=== PATIENT | female | born 1965 | race Two or more races ===

== ENCOUNTER → 2019-07-06 | Day surgery (SDC) | payer OTHER ==
--- NOTE | 2019-07-08 12:28 | PATH ---
Cytology Non-Gynecological Report Patient Name: ANGELA PARMAR [facility]. Rec. #: [id number] /Age/Gender: 1965 (Age: 54) / F Account: [id number] Location: RADIOLOGY INTER Taken: 07/06/2019 Received: 07/06/2019 Reported: 07/08/2019 Physicians: Thuan Finney M.D. Specimen(s) Received THYROID FNA Clinical History Left lobe thyroid, 6.5 x 3.01 x 4.73 cm Final Diagnosis THYROID, LEFT LOBE, FINE NEEDLE ASPIRATION: SATISFACTORY FOR EVALUATION. B[place] CLASS II: BENIGN. CYTOLOGIC FINDINGS ARE CONSISTENT WITH A BENIGN FOLLICULAR NODULE. SMALL FOLLICULAR CELLS, COLLOID, AND RARE LYMPHOID TANGLES PRESENT. Electronically Signed Julia Gill M.D. Gross Description Received are eight direct smears, four of which are air-dried and Diff-Quik stained, and four of which are alcohol fixed and Pap stained. Also received is 20 ml of bloody formalin from which one cellblock is prepared.
== END | disposition home or self-care (01) ==
LOC: JRADIR 09:24
PROVIDERS: ATTEND Internal Medicine
PROC: 0G9G3ZX Drainage of Left Thyroid Gland Lobe, Percutaneous Approach, Diagnostic (ICD-10-PCS; principal; 2019-07-06)
DX: D34 Benign neoplasm of thyroid gland (principal)
CPT/HCPCS: 76942; 88173; 88305-TC

== ENCOUNTER 2021-04-04 04:43 | Day surgery (SDC) | payer OTHER ==
[2021-04-03 14:39] VITALS: BMI 31.3
[2021-04-04 13:56] VITALS: BP 137/73; PULSE 79; TEMP 97.8
== END 2021-04-04 13:31 | disposition home or self-care (01) ==
LOC: JASU-ENDO 04:43
PROVIDERS: ATTEND Internal Medicine Gastroenterology
PROC: 0DB28ZX Excision of Middle Esophagus, Via Natural or Artificial Opening Endoscopic, Diagnostic (ICD-10-PCS; 2021-04-04)
PROC: 0D738ZZ Dilation of Lower Esophagus, Via Natural or Artificial Opening Endoscopic (ICD-10-PCS; 2021-04-04)
PROC: 0DB38ZX Excision of Lower Esophagus, Via Natural or Artificial Opening Endoscopic, Diagnostic (ICD-10-PCS; principal; 2021-04-04 12:00)
DX: K22.2 Esophageal obstruction (principal); R13.10 Dysphagia, unspecified; R93.3 Abnormal findings on diagnostic imaging of other parts of digestive tract

== ENCOUNTER 2022-02-23 19:54 | Emergency (ER) | payer OTHER ==
[2022-02-23 20:06] VITALS: TEMP 97.6; BMI 29.2
[2022-02-23 21:11] LABS: BASO % 0.7 % (0-2.0); EOS % 3.3 % (0-4.5); HEMATOCRIT 38.9 % (32.4-45.2); HEMOGLOBIN 13.5 GM/dL (10.7-15.3); LYMPH % 42.3 % (8-40); MCHC 34.7 g/dl (32.0-36.0); MEAN CELL VOLUME 77.8 fl (80-96); MEAN PLT VOLUME 9.2 fl (7.5-11.1); MONO % 6.5 % (3.8-10.2); NEUT % 47.2 % (42.8-82.8); PLATELET COUNT 219 10^3/uL (134-434); RDW 13.6 % (11.6-15.6); WHITE BLOOD COUNT 7.5 K/mm3 (4.0-10.0)
[2022-02-23 21:25] LABS: ALBUMIN 3.9 g/dl (3.4-5.0); BLOOD UREA NITROGEN 19.3 mg/dL (7-18); CALCIUM 8.8 mg/dL (8.5-10.1); MAGNESIUM 2.1 mg/dL (1.8-2.4)
[2022-02-23 21:28] LABS: CREATININE 0.9 mg/dL (0.55-1.3)
[2022-02-23 21:30] LABS: BILIRUBIN,TOTAL 0.6 mg/dL (0.2-1); TOT PROT 8.4 g/dl (6.4-8.2)
[2022-02-23] MEDS ORDERED: PANTOPRAZOLE 20 MG TABLET PO ONE ×2 (22:01→22:38)
[2022-02-23 22:58] VITALS: BP 142/78; PULSE 72
== END 2022-02-23 23:46 | disposition home or self-care (01) ==
LOC: JER 19:54
DX: R00.2 Palpitations (principal)
CPT/HCPCS: 36415; 71046-TC-FY; 80053; 83735; 84484; 85025; 93005; 93010; 99285-25

== ENCOUNTER → 2022-04-29 | Day surgery (SDC) | payer OTHER | END | disposition home or self-care (01) | LOC: JRADIR 09:59 | PROVIDERS: ATTEND Internal Medicine | PROC: 0G9G3ZX Drainage of Left Thyroid Gland Lobe, Percutaneous Approach, Diagnostic (ICD-10-PCS; principal; 2022-04-29) | DX: E04.1 Nontoxic single thyroid nodule (principal) | CPT/HCPCS: 10005; 76942; 88173; 88305-TC ==

== ENCOUNTER 2023-01-02 03:58 | Day surgery (SDC) | payer OTHER ==
[2022-12-31 12:45] VITALS: BMI 29.8
[~2023-01-02 03:58] MED LIST: BUPIVACAINE HCL/PF 0.5% (5MG/ML) 10 ML VIAL NR ONE; LIDOCAINE 1%/EPI 1:100000 (20 ML MULTI DOSE VIAL) IJ ONE; ceFAZolin SODIUM 1 GM VIAL IVPB ONE
[2023-01-02] MEDS ORDERED: ceFAZolin SODIUM 1 GM VIAL IVPB ONE (11:20)
[2023-01-02] MEDS ORDERED: BUPIVACAINE HCL/PF 0.5% (5MG/ML) 10 ML VIAL NR ONE (11:32)
[2023-01-02] MEDS ORDERED: LIDOCAINE 1%/EPI 1:100000 (20 ML MULTI DOSE VIAL) IJ ONE (11:32)
[2023-01-02] MEDS ORDERED: MICROFIBRILLAR COLLAGEN 1 GM EACH NR ONE (12:35)
[2023-01-02] MEDS ORDERED: LACTATED RINGERS SOLUTION 1,000 ML IV SCH (13:15)
[2023-01-02] MEDS ORDERED: CALCIUM CARBONATE 650 MG TABLET PO ONE (13:30)
[2023-01-02] MEDS ORDERED: ACETAMINOPHEN 1000 MG/100 ML BAG IVPB ONE ×2 (13:38→14:00)
[2023-01-02] MEDS ORDERED: KETOROLAC TROMETHAMINE 30 MG/1 ML VIAL IVPUSH ONE ×2 (13:39→14:25)
[2023-01-02] MEDS ORDERED: ACETAMINOPHEN INJECTION 100 ML IVPB ONE (13:57)
[2023-01-02] MEDS ORDERED: CALCITRIOL 0.25 MCG CAPSULE (FP) PO ONE (14:00)
[2023-01-02 19:06] VITALS: RESP 18
[2023-01-02 19:10] VITALS: BP 132/64; PULSE 93; TEMP 98.2
== END 2023-01-02 17:05 | disposition home or self-care (01) ==
LOC: JASU-SURG 03:58
PROVIDERS: ATTEND Surgery
PROC: 0GSR0ZZ Reposition Parathyroid Gland, Open Approach (ICD-10-PCS; 2023-01-02)
PROC: 0GTK0ZZ Resection of Thyroid Gland, Open Approach (ICD-10-PCS; principal; 2023-01-02 10:00)
DX: E04.8 Other specified nontoxic goiter (principal); E05.90 Thyrotoxicosis, unspecified without thyrotoxic crisis or storm
CPT/HCPCS: 88307-TC; 94760

== ENCOUNTER 2023-02-25 13:12 | Emergency (ER) | payer OTHER ==
[2023-02-25 13:21] VITALS: BP 160/79; PULSE 101; RESP 16; TEMP 98.5; BMI 18.8
[2023-02-25 15:37] LABS: BASO % 0.6 % (0-2.0); HEMATOCRIT 35.4 % (32.4-45.2); HEMOGLOBIN 11.8 GM/dL (10.7-15.3); LYMPH % 33.4 % (8-40); MCH 26.4 pg (25.7-33.7); MCHC 33.5 g/dl (32.0-36.0); MEAN CELL VOLUME 78.8 fl (80-96); MEAN PLT VOLUME 9.6 fl (7.5-11.1); MONO % 7.1 % (3.8-10.2); NEUT % 55.9 % (42.8-82.8); PLATELET COUNT 232 10^3/uL (134-434); RBC 4.49 M/mm3 (3.60-5.2); RDW 13.8 % (11.6-15.6); WHITE BLOOD COUNT 8.3 K/mm3 (4.0-10.0)
[2023-02-25 15:44] LABS: INR 1.07 (0.83-1.09); PROTHROMBIN TIME (PATIENT) 12.4 SEC (9.7-13.0)
[2023-02-25 16:04] LABS: POTASSIUM 4.6 mmol/L (3.5-5.1)
[2023-02-25 16:06] LABS: CALCIUM 8.7 mg/dL (8.5-10.1)
[2023-02-25 16:07] LABS: ALBUMIN 3.5 g/dl (3.4-5.0)
[2023-02-25 16:10] LABS: CREATININE 0.9 mg/dL (0.55-1.3)
[2023-02-25 16:12] LABS: BILIRUBIN,TOTAL 0.3 mg/dL (0.2-1); TOT PROT 7.8 g/dl (6.4-8.2)
== END 2023-02-25 19:00 | disposition home or self-care (01) ==
LOC: JER 13:12
DX: R42 Dizziness and giddiness (principal); H43.391 Other vitreous opacities, right eye
CPT/HCPCS: 36415; 70450-TC; 70496-TC; 70498-TC; 80053; 84484; 85025; 85610; 85730; 93005; 93010; 99285-25

== ENCOUNTER 2024-08-12 00:09 | Emergency (ER) | payer OTHER ==
[2024-08-12 00:25] VITALS: BP 161/95; PULSE 97; RESP 18; TEMP 98.4; BMI 30.4
== END 2024-08-12 00:31 | disposition home or self-care (01) ==
LOC: JER 00:09
DX: R05.9 Cough, unspecified (principal); R09.81 Nasal congestion; J06.9 Acute upper respiratory infection, unspecified; J34.89 Other specified disorders of nose and nasal sinuses; R50.9 Fever, unspecified; Z20.822 Contact with and (suspected) exposure to COVID-19
CPT/HCPCS: 0241U-QW; 99283-25